=== PATIENT | male | born 1960 | race African-American/Black ===

== ENCOUNTER 2017-03-02 08:43 | Emergency (ER) | payer OTHER ==
[~2017-03-02] VITALS: Ht 180.3 cm; Wt 91.0 kg
[2017-03-02] MEDS ORDERED: KETOROLAC 60MG/2ML VIAL IM STA (09:25)
[2017-03-02] MEDS: CYCLOBENZAPRINE 10MG TABLET PO NR ×2 (12:01→12:07)
[2017-03-02 12:11] VITALS: BP 162/90
== END 2017-03-02 12:38 | disposition home or self-care (01) ==
LOC: ER 08:59
DX: S39.012A Strain of muscle, fascia and tendon of lower back, initial encounter (principal); F12.10 Cannabis abuse, uncomplicated; X50.0XXA Overexertion from strenuous movement or load, initial encounter; Y93.89 Activity, other specified; Y92.89 Other specified places as the place of occurrence of the external cause; Y99.2 Volunteer activity
CPT/HCPCS: 72100; 96372; 99284; J1885; Z7610